=== PATIENT | female | born 1960 | race Asian ===

== ENCOUNTER → 2018-03-17 | Outpatient (CLI) | payer BC ==
[~2018-03-17] MED LIST: ALBUTEROL INHAL17 GM IH; AMLODIPINE BESY10 MG PO; AMOXICILLIN875 MG PO; CORTISPORIN OTI10 ML OT; HYDROXYZINE HCL25 M1 PO; HYPERTENSION MED; MEDROLDOSEPACK PO; SIMVASTATIN10 MG PO; VISTARIL 25 MG25 M1 PO
== END ==
LOC: M.RAD 09:37
DX: Z12.31 Encounter for screening mammogram for malignant neoplasm of breast (principal)

== ENCOUNTER → 2019-06-23 | Outpatient (CLI) | payer BC | LOC: M.RAD 13:07 | DX: Z12.31 Encounter for screening mammogram for malignant neoplasm of breast (principal) ==